=== PATIENT | male | born 1945 | race Caucasian/White ===

== ENCOUNTER 2023-12-21 05:28 | Day surgery (SDC) | payer MEDICARE ==
[2023-12-19 12:01] LABS: BASOPHILS # (AUTO) 0.04 K/uL (0.00-0.20); BASOPHILS % (AUTO) 0.6 % (0.0-5.0); EOSINOPHILS # (AUTO) 0.48 K/uL (0.00-0.70); EOSINOPHILS % (AUTO) 6.9 % (0.0-8.0); HEMATOCRIT 44.7 % (42-54); IMMATURE GRANULOCYTE ABSOLUTE 0.03 K/uL (0-1); LYMPHOCYTES # (AUTO) 2.4 K/uL (1.0-4.8); LYMPHOCYTES % (AUTO) 33.9 % (21.0-51.0); MEAN CORPUSCULAR HEMOGLOBIN 30.8 pg (27.0-33.0); MEAN CORPUSCULAR HGB CONC 33.1 g/dL (32.0-36.0); MEAN CORPUSCULAR VOLUME 93.1 fL (79-99); MONOCYTES # (AUTO) 0.7 K/uL (0.1-1.0); MONOCYTES % (AUTO) 9.9 % (3.0-13.0); NEUTROPHILS # (AUTO) 3.4 K/uL (1.8-7.7); NEUTROPHILS % (AUTO) 48.3 % (40.0-77.0); PLATELET COUNT (AUTO) 229 K/uL (130-400)
[2023-12-19 12:15] LABS: CREATININE 1.2 mg/dL (0.5-1.3); POTASSIUM 4.3 mmol/L (3.5-5.1)
[2023-12-19 12:17] LABS: INR 0.98 (0.85-1.15); PROTHROMBIN TIME 10.6 SEC (9.6-11.6)
[2023-12-19 12:18] LABS: PARTIAL THROMBOPLASTIN TIME 26.9 SEC (26.3-35.5)
[2023-12-19 12:20] VITALS: BP 191/91; PULSE 71; RESP 20
[2023-12-19 12:24] LABS: B-TYPE NATRIURETIC PEPTIDE 55 pg/mL (0-100)
[2023-12-19 14:15] LABS: APPEARANCE,URINE CLEAR (CLEAR); BILIRUBIN,URINE NEGATIVE (NEGATIVE); COLOR,URINE LIGHT-YELLOW (YELLOW); GLUCOSE, URINE (UA) NEGATIVE (NEGATIVE); KETONES,URINE NEGATIVE (NEGATIVE); LEUKOCYTE ESTERASE ,URINE NEGATIVE Leu/uL (NEGATIVE); NITRATE,URINE NEGATIVE (NEGATIVE); OCCULT BLOOD,URINE NEGATIVE (NEGATIVE); PROTEIN,URINE NEGATIVE (NEGATIVE); UROBILINOGEN,URINE 0.2 mg/dL (0.2-1.0)
[2023-12-19 14:26] LABS: ADD UA MICROSCOPIC NO
[~2023-12-21] VITALS: Ht 172.7 cm; Wt 111.1 kg
[2023-12-21] VITALS (12 sets, daily range): BP systolic 131–149; BP diastolic 70–81; PULSE 53–74; RESP 10–19
[~2023-12-21 05:28] MED LIST: AMLO-258 PO; ASPI-1197 PO; CALCIUM PO; FURO20TA4 PO; LISI10TA24 PO; METO-409 PO; MULT-1285 PO; OMEG100033 PO; POTA-200 PO; VALS320T16 PO; VITAMIN PO
[2023-12-21] MEDS: 0.9%NACL 1000ML 1,000 ML IV ONE (06:39)
[2023-12-21] MEDS ORDERED: LIDOCAINE HCL 400MG/20ML VIAL ONE (07:15)
[2023-12-21] MEDS ORDERED: NITROGLYCERIN 50MG VIAL ONE (07:16)
[2023-12-21] MEDS ORDERED: HEPARIN 10,000 UNIT/10ML (1,000 UNIT/ML) VIAL ONE ×2 (07:16→08:06)
[2023-12-21] MEDS ORDERED: IOHEXOL 350 MG/ML 100ML INFUS..BTL IV ONE ×2 (07:16→08:34)
[2023-12-21] MEDS ORDERED: FENTANYL CITRATE PF 50 MCG/1 ML 2ML VIAL ONE ×2 (07:23→09:12)
[2023-12-21] MEDS ORDERED: VERAPAMIL HCL 2.5 MG/ML VIAL ONE (07:24)
[2023-12-21] MEDS ORDERED: MIDAZOLAM HCL 1 MG/ML 2ML VIAL ONE ×3 (07:24→09:12)
[2023-12-21] MEDS ORDERED: ASPIRIN 325MG EC TAB PO ONE (08:40)
[2023-12-21] MEDS ORDERED: CLOPIDOGREL 300MG TAB ONE (08:40)
[2023-12-21] MEDS ORDERED: NICARDIPINE 25MG INJ IV ONE (09:04)
[2023-12-21] MEDS ORDERED: MORPHINE 4 MG SYG ONE (09:06)
[2023-12-21] MEDS ORDERED: IOHEXOL-350 75 ML VIAL IV ONE (09:21)
[2023-12-21] MEDS ORDERED: GLUCAGON 1MG KIT 1 MG ML IM PRN (10:00)
[2023-12-21] MEDS ORDERED: DEXTROSE 50%-WATER 50 ML DISP.SYRIN IV PRN (10:00)
[2023-12-21] MEDS: 0.9%NACL 1000ML 1,000 ML IV SCH (10:15)
[2023-12-22] MEDS ORDERED: CLOPIDOGREL 75MG TAB PO SCH (09:00)
[2023-12-22] MEDS ORDERED: ASPIRIN 81MG CHEW TAB PO SCH (09:00)
== END 2023-12-21 14:18 | disposition home or self-care (01) ==
LOC: DAH 05:28
PROVIDERS: ATTEND Student in an Organized Health Care Education/Training Program
DX: I25.118 Atherosclerotic heart disease of native coronary artery with other forms of angina pectoris (principal); R94.39 Abnormal result of other cardiovascular function study; E78.5 Hyperlipidemia, unspecified; R60.9 Edema, unspecified; R06.02 Shortness of breath; R74.8 Abnormal levels of other serum enzymes; Z96.641 Presence of right artificial hip joint; Z90.49 Acquired absence of other specified parts of digestive tract; Z79.01 Long term (current) use of anticoagulants; Z79.899 Other long term (current) drug therapy
CPT/HCPCS: 80048; 83880; 85025; 85610; 85730; 81003; 36415; 71045; 93005; 93458; 92978; 92979; 85347 ×2; 74018; C9600; Q9965 ×5; C1769 ×4; C1725 ×3; C1874 ×3; C1894; A4649; C1887 ×2; C1753; J3010 ×2; J3490 ×4; J7030; J1644 ×4; J2250 ×3; J2270; Q9967 ×3; A4215; A4222; A4221; A4663; A4216; A4606; A4223 ×3; 99156; 99157